=== PATIENT | female | born 1980 | race Caucasian/White ===

== ENCOUNTER 2021-07-18 08:42 | Outpatient (CLI) | payer OTHER, SELFPAY ==
[2021-07-18 08:56] VITALS: BP 126/78; PULSE 87; RESP 17; TEMP 36.4; O2SAT 99
[2021-07-18 09:15] VITALS: BMI 43.9
[2021-07-18 09:38] VITALS: BP 146/88; PULSE 89; RESP 18; TEMP 36.7; O2SAT 95
[2021-07-18 10:38] VITALS: BP 164/98; PULSE 76; RESP 18; TEMP 36.3; O2SAT 96
== END 2021-07-18 10:38 | disposition home or self-care (01) ==
LOC: OPS 08:47
PROVIDERS: PCP Nurse Practitioner Family; Visit Provider Nurse Practitioner Family
DX: U07.1 COVID-19 (principal)
CPT/HCPCS: 96365